=== PATIENT | female | born 1990 | race Caucasian/White ===

== ENCOUNTER 2017-11-14 13:18 | Emergency (ER) | payer OTHER ==
[2017-11-14 13:33] VITALS: TEMP 98.6
[2017-11-14] MEDS ORDERED: Sodium Chloride 0.9% 1,000 ML IV STA (14:00)
--- NOTE | 2017-11-14 14:09 | ED PDOC ---
Arrival/HPI - General Chief Complaint: Female Genitourinary Time Seen by Provider: 11/14/17 13:48 Historian: Patient, Partner - History of Present Illness Narrative History of Present Illness (Text): 11/14/17 13:56 A 27 year old female, , , with no significant past medical history, whom is accompanied by partner, presents to the emergency department complaining of vaginal bleeding. Patient is currently 9 weeks and had confirmed 2 weeks ago with ROLLED SEAT TRIMMER; Patient reports was first spotting few days ago. Later on, blood clot developed. Patient and partner became concerned and came in for evaluation. Notes also experiencing some mild lower abdominal pain and back pain. Patient denies any lightheadedness, dizziness, or any other complaints at this time. ROLLED SEAT TRIMMER: Dr. Ochoa Past Medical History - Provider Review Nursing Documentation Reviewed: Yes - Psychiatric Hx Psychophysiologic Disorder: No Hx Substance Use: No Family/Social History - Physician Review Nursing Documentation Reviewed: Yes Family/Social History: No Known Family HX Smoking Status: Never Smoked Hx Alcohol Use: Yes Frequency of alcohol use: Socially Hx Substance Use: No Allergies/Home Meds Allergies/Adverse Reactions: Allergies No Known Allergies Allergy (Verified 11/14/17 13:28) Home Medications: Home Meds Medication Instructions Recorded Confirmed No Known Home Med 11/14/17 11/14/17 Review of Systems - Physician Review All systems were reviewed & negative as marked: Yes - Review of Systems Gastrointestinal: Abdominal Pain Genitourinary Female: Vaginal Bleeding Musculoskeletal: Back Pain Neurological: absent: Dizziness (no lightheadedness and no dizziness) Physical Exam Vital Signs Reviewed: Yes Vital Signs Temp Pulse Resp BP Pulse Ox 11/14/17 18:15 68 18 118/71 100 11/14/17 16:05 71 18 116/75 100 11/14/17 13:28 98.6 F 79 16 114/70 97 Temperature: Afebrile Blood Pressure: Normal Pulse: Regular Respiratory Rate: Normal Appearance: Positive for: Well-Appearing Pain Distress: None Mental Status: Positive for: Alert and Oriented X 3 - Systems Exam Head: Present: Atraumatic, Normocephalic Pupils: Present: PERRL Extroacular Muscles: Present: EOMI Conjunctiva: Present: Normal Mouth: Present: Moist Mucous Membranes Neck: Present: Normal Range of Motion Respiratory/Chest: Present: Clear to Auscultation, Good Air Exchange. No: Respiratory Distress, Accessory Muscle Use Cardiovascular: Present: Regular Rate and Rhythm, Normal S1, S2. No: Murmurs Abdomen: No: Tenderness, Distention, Normal Bowel Sounds, Rebound, Guarding Genitourinary/Pelvic Exam: Present: Cervical os Closed, Other (moderate blood, some clots ; exam chaperoned by Sil, EMT.). No: Adenexal Tenderness, Cervical Motion Tendernes Back: Present: Normal Inspection Upper Extremity: Present: Normal Inspection. No: Cyanosis, Edema Lower Extremity: Present: Normal Inspection. No: Edema Neurological: Present: GCS=15, CN II-XII Intact, Speech Normal Skin: Present: Warm, Dry, Normal Color. No: Rashes Psychiatric: Present: Alert, Oriented x 3, Normal Insight, Normal Concentration Medical Decision Making ED Course and Treatment: 11/14/17 14:00 Impression: 27 year old female with vaginal bleeding. Differential Diagnosis included but are not limited to: Miscarriage vs. Threatened vs Demise Plan: -- Transvaginal Ultrasound -- Labs -- POC Urine Test -- IV Fluids -- Urinalysis -- Reassess and disposition Progress Notes: TV Sono Accession No. : [id number] Patient Name / ID : ZACH GUERRERO / [id number] IMPRESSION: Single intrauterine gestation with normal cardiac activity. Ultrasound estimated gestational age is 7 weeks 4 days 0 weeks 4 days Patients labs reviewed with patient and . TV sono results read to patient and . Type and screen reviewed. Patient was advised that she make sure to see her OBGYN tomorrow. They already called and made an appt for tomorrow morning. She no longer has pain. No lightheadedness or dizziness. She was advised to bed rest, no sex, no straining of any kind and to drink plenty of fluids. She was advised to return to the ED if symptoms worsen or any other concern. - Lab Interpretations Lab Results: 11/14/17 14:30 11/14/17 14:30 Lab Results 11/14/17 18:05: Blood Type Confirm A POSITIVE 11/14/17 16:50: Blood Type A POSITIVE, Antibody Screen Negative, BBK History Checked No verified bt 11/14/17 14:30: Beta HCG, Quant [id number] H 11/14/17 14:30: Sodium 141, Potassium 4.1, Chloride 103, Carbon Dioxide 25, Anion Gap 17, BUN 14, Creatinine 0.6 L, Est GFR ( Amer) > 60, Est GFR ( Non-Af Amer) > 60, Random Glucose 70, Calcium 10.0, Total Bilirubin 0.4, AST 26 , ALT 28, Alkaline Phosphatase 49, Total Protein 8.1, Albumin 4.3, Globulin 3.7 , Albumin/Globulin Ratio 1.2 11/14/17 14:30: PT 12.0, INR 1.05, APTT 29.1 11/14/17 14:30: WBC 9.8, RBC 4.15, Hgb 12.4, Hct 36.7, MCV 88.4, MCH 29.9, MCHC 33.8, RDW 12.2, Plt Count 382, MPV 9.2, Gran % 66.3, Lymph % (Auto) 23.8, [place] % (Auto) 7.3 H, Eos % (Auto) 2.2, Baso % (Auto) 0.4, Gran # 6.49, Lymph # (Auto ) 2.3, [place] # (Auto) 0.7 H, Eos # (Auto) 0.2, Baso # (Auto) 0.04 11/14/17 14:20: Urine Color Yellow, Urine Appearance Sl cloudy, Urine pH 6.5, Ur Specific [place] 1.015, Urine Protein Negative, Urine Glucose (UA) Negative, Urine Ketones Negative, Urine Blood Large H, Urine Nitrate Negative, Urine Bilirubin Negative, Urine Urobilinogen 0.2, Ur Leukocyte Esterase Negative, Urine RBC 5 - 10, Urine WBC Negative, Urine HCG, Qual Positive I have reviewed the lab results: Yes - RAD Interpretation Radiology Orders: 11/14/17 14:01 OB TRANSVAGINAL [US] Stat - Medication Orders Current Medication Orders: Discontinued Medications Sodium Chloride (Sodium Chloride 0.9%) 1,000 mls @ 100 mls/hr IV .Q10H STA Stop: 11/14/17 23:59 Last Admin: 11/14/17 14:30 Dose: 100 mls/hr eMAR Start Stop Document 11/14/17 14:30 HI (Rec: 11/14/17 14:30 HI [id number]) Intravenous Solution Start Date 11/14/17 Start Time 14:30 - Scribe Statement The provider has reviewed the documentation as recorded by the Baltazar Arreola Provider Baltazar Attestation: All medical record entries made by the Rositaibe were at my direction and personally dictated by me. I have reviewed the chart and agree that the record accurately reflects my personal performance of the history, physical exam, medical decision making, and the department course for this patient. I have also personally directed, reviewed, and agree with the discharge instructions and disposition. Disposition/Present on Arrival - Present on Arrival Any Indicators Present on Arrival: No History of DVT/PE: No History of Uncontrolled Diabetes: No Urinary Catheter: No History of Decub. Ulcer: No History Surgical Site Infection Following: None - Disposition Have Diagnosis and Disposition been Completed?: Yes Diagnosis: Threatened Disposition: HOME/ ROUTINE Disposition Time: 19:02 Patient Plan: Discharge Condition: IMPROVED Discharge Instructions (ExitCare): Threatened Miscarriage Additional Instructions: [place], thank you for letting us take care of you today. Your provider was Dr. Mahoney. You were treated for Threatened . The emergency medical care you received today was directed at your acute symptoms. If you were prescribed any medication, please fill it and take as directed. It may take several days for your symptoms to resolve. Return to the Emergency Department if your symptoms worsen, do not improve, or if you have any other problems. Make sure to follow up with your OBGYN in 1-2 days. Please contact your doctor or call one of the physicians/clinics you have been referred to that are listed on the Patient Visit Information form that is included in your discharge packet. Bring any paperwork you were given at discharge with you along with any medications you are taking to your follow up visit. Our treatment cannot replace ongoing medical care by a primary care provider (PCP) outside of the emergency department. Thank you for allowing the [facility] team to be part of your care today. If you had an X-Ray or CT scan: A Radiologist will review the ED reading if any change in treatment is needed we will contact you. If you had a blood, urine, or wound culture: It will take several days for the results, if any change in treatment is needed we will contact you. If you had an STI test: It will take 48 hours for the results. Please call after 1 week if you have not heard back. Referrals: [facility], [Non-Staff] - Follow up with primary Forms: [employer] ([place]ican), WORK NOTE
[2017-11-14 14:38] LABS: PH,URINE 6.5 (4.7-8.0); URINE BILIRUBIN NEGATIVE (NEGATIVE); URINE BLOOD LARGE (NEGATIVE); URINE GLUCOSE (UA) NEGATIVE (NEGATIVE); URINE LEUKOCYTE ESTERASE NEGATIVE Leu/uL (NEGATIVE); URINE PROTEIN NEGATIVE mg/dL (<30 mg/dL); URINE UROBILINOGEN 0.2 E.U./dL (<1 E.U./dL)
[2017-11-14 14:41] LABS: URINE APPEARANCE SL CLOUDY (CLEAR); URINE COLOR YELLOW (YELLOW)
[2017-11-14 14:42] LABS: HCG,QUALITATIVE URINE POSITIVE (NEGATIVE)
[2017-11-14 14:43] LABS: BASO # 0.04 K/mm3 (0.0-2.0); BASO % 0.4 % (0.0-3.0); EOS # 0.2 (0.0-0.7); EOS % 2.2 % (1.5-5.0); GRAN # 6.49 (1.4-6.5); GRAN % 66.3 % (50.0-68.0); HEMOGLOBIN 12.4 g/dL (12.0-16.0); LYMPH # 2.3 (1.2-3.4); LYMPH % 23.8 % (22.0-35.0); MEAN CELL VOLUME 88.4 fl (80.0-105.0); MEAN CORPUSCULAR HEMOGLOBIN 29.9 pg (25.0-35.0); MEAN CORPUSCULAR HGB CONC 33.8 g/dl (31.0-37.0); MEAN PLATELET VOLUME 9.2 fl (7.0-11.0); MONO # 0.7 (0.1-0.6); MONO % 7.3 % (1.0-6.0); RBC 4.15 10^6/uL (3.5-6.1); RED CELL DISTRIBUTION WIDTH 12.2 % (11.5-14.5); WHITE BLOOD COUNT 9.8 10^3/ul (4.5-11.0)
[2017-11-14 14:45] LABS: URINE WBC NEGATIVE /hpf (0-6)
[2017-11-14 14:54] LABS: INR 1.05 (0.93-1.08); PARTIAL THROMBOPLASTIN TIME 29.1 Seconds (25.1-36.5)
[2017-11-14 14:55] LABS: ALB/GLOB RATIO 1.2 (1.1-1.8); ALBUMIN 4.3 g/dL (3.0-4.8); ALT/SGPT 28 U/L (7-56); AST/SGOT 26 U/L (14-36); BLOOD UREA NITROGEN 14 mg/dL (7-21); GFR AFRICAN-AMERICAN > 60; GFR NON-AFRICAN AMERICAN > 60
[2017-11-14 16:06] VITALS: RESP 18; O2SAT 100
--- NOTE | 2017-11-14 16:36 | US ---
PROCEDURE: OB Pelvic Ultrasound HISTORY: threaten ab vs miscarriage vs ectopic LMP: 09/26/2017 COMPARISON: None available. FINDINGS: UTERUS: Gestational sac: Single intrauterine gestation. Heart rate: 171 bpm. age (Ultrasound estimated): 7 weeks 4 days 0 weeks 4 days. Gestational sac 2.4 cm corresponding to 7 weeks 0 days. Yolk sac present 0.31 cm. pole/crown-rump length 0.53 cm corresponding 8 weeks 0 days. Virgie-gestational hemorrhage: None. Date of delivery (Ultrasound estimated) : 06/29/2018 Uterus measures 11.3 x 6.2 x 7.6 cm. Normal in size and appearance. CERVIX: Measures 3.1 cm. Long and closed. No cervical abnormality seen. RIGHT OVARY: Measures 3.5 x 1.9 x 2.8 cm. No mass lesion. Normal flow. LEFT OVARY: Measures 2.7 x 1.4 x 2.3 cm. No solid mass. Normal flow. FREE FLUID: Minimal free fluid present. OTHER FINDINGS: Bilateral adnexal vein dilatations IMPRESSION: Single intrauterine gestation with normal cardiac activity. Ultrasound estimated gestational age is 7 weeks 4 days 0 weeks 4 days
[2017-11-14 18:15] VITALS: BP 118/71; PULSE 68
== END 2017-11-14 19:01 | disposition home or self-care (01) ==
LOC: ED 13:18
DX: O20.0 Threatened abortion (principal); Z3A.01 Less than 8 weeks gestation of pregnancy
CPT/HCPCS: 76817; 80053; 81001; 84702; 84703; 85025; 85610; 85730; 86850; 86900; 87491; 87591; 99284; J7040